=== PATIENT | female | born 1970 | race Caucasian/White ===

== ENCOUNTER 2016-08-15 20:04 | Emergency (ER) | payer MEDICARE, MEDICAID ==
[~2016-08-15] VITALS: Ht 157.5 cm; Wt 70.5 kg
[~2016-08-15 20:04] MED LIST: CHOL500050 PO; ELET40TA9 PO; GLYC2TAB13 PO; LAMO25TA PO; LEVO100T6 PO; MIDO2.5T PO; MULT-666 PO; PROM12.510 PO; TERA5CAP6 PO; TRAM50TA2 PO; VERA100C5 PO; [UNRECOGNIZED DRUG - CODE] PO; cyanocobalamin IJ
[2016-08-15 20:28] VITALS: BP 104/64; PULSE 63; RESP 14; O2SAT 99
[2016-08-15 21:42] LABS: BASOPHILS % (AUTO) 0.8 % (0-3); EOSINOPHILS % (AUTO) 2.8 % (0-5); Mean Corpuscular Hemoglobin 28.9 pg (27.0-35.0); Mean Corpuscular Volume 86.1 fL (81-100); NEUTROPHILS % (AUTO) 53.2 % (40-74); Platelet Count 170 bil/L (150-400)
[2016-08-15 22:03] LABS: Magnesium 1.9 mg/dL (1.6-2.6)
--- NOTE | 2016-08-15 23:50 | ED.REPORT ---
HPI-Abd Pain F 40 and Over Date of Service Aug 15, 2016 ED Provider: Jersey Fabian MD Pt is a 45 y.o. female with a hx of bowel obstruction, cholecystectomy, appendectomy, and gastric bypass who presents to the ED c/o RLQ pain onset 1 month ago and worsening over the past several days currently rated at a 9. Pt reports associated nausea and diarrhea. She denies vomiting, dysuria, and fever. Nursing Notes Stated Complaint: ABDOMINAL PAIN Chief Complaint: Female Abdominal Pain Nursing Notes Reviewed: Yes Allergies: Coded Allergies: clindamycin (Verified Allergy, Severe, rash, 04/29/15) fluoxetine HCl (Verified Allergy, Severe, rash, 04/29/15) zolpidem (Verified Allergy, Intermediate, 01/06/16) NSAIDS (Non-Steroidal Anti-Inflamma (Unverified Allergy, Unknown, unknown , 04/29/15) fluocortin butyl (Verified Allergy, Unknown, unknown, 04/29/15) zolpidem tartrate (Verified Adverse Reaction, Severe, hallucinations, ) Scheduled ([cyanocobalamin]) 1,000 MCG IJ every month Bethanechol Chloride (Urecholine) 25 Mg Tab 25 MG PO DAILY Cholecalciferol (Vitamin D3) (Vitamin D3) 50,000 Unit Capsule 50,000 UNIT PO QW Glycopyrrolate (Glycopyrrolate) 2 Mg Tablet 2 MG PO AM Glycopyrrolate (Glycopyrrolate) 2 Mg Tablet 3 MG PO HS Lamotrigine (Lamotrigine) 25 Mg Tablet 75 MG PO AM Levothyroxine (Levothyroxine) 100 Mcg Tablet 75 MCG PO AM Midodrine (Midodrine) 2.5 Mg Tablet 5 MG PO AM Multivitamin (Once Daily) 1 Each Tablet 1 EACH PO DAILY Terazosin (Terazosin) 5 Mg Capsule 5 MG PO HS Verapamil ER (Verelan PM) 100 Mg Capsule 100 MG PO BID Scheduled PRN Eletriptan HBr (Relpax) 40 Mg Tablet 40 MG PO DAILY PRN PRN Headache Promethazine (Promethazine) 12.5 Mg Tablet 12.5 MG PO Q4-6H PRN PRN . Tramadol (Tramadol) 50 Mg Tablet 50 MG PO Q6H PRN PRN For Pain General Time Seen by MD: 23:41 Chief Complaint Abdominal pain Hx Obtained From: Patient Arrived By: Walk-in Sudden in Onset?: No Onset Occurred: More than a week ago... Symptom Duration: Since onset Progression since Onset: Gradually worsening Location: : RLQ Quality: Painful Severity: Current: Pain level 9 out of 10 Recent Healthcare: No recent doctor visit, No recent hospitalization Past Medical History Past Medical History Pt reports "kidney problems" Past Surgical History Bowel obstruction Reports: Appendectomy, Cholecystectomy, Inguinal hernia repair Reports: Gastric bypass Smoking History Never Smoker Social History Other Social History: Good social support, Local resident Ambulatory Status Independent Review of Systems Constitutional: Denies: Fever GI: Reports: Abdominal pain, Diarrhea, Nausea, Denies: Constipation, Vomiting Female: Denies: Dysuria Complete sys rev & neg: except as marked. Physical Exam Vital Signs Vital Signs (First) Date Time Temp Pulse Resp B/P Pulse Ox O2 Delivery O2 Flow Rate FiO2 08/15/16 20:28 36.5 63 14 104/64 99 Room Air Initial VS: Reviewed, Vital signs normal Head / Eyes: Atraumatic, Normocephalic, PERRL Extremities: Vascular intact, Neuro intact Skin: Warm, Dry, No cyanosis Neurologic: Alert, Oriented, Nonfocal Psychiatric: Mood/affect normal, Behavior normal, Normal thought content General/Constitutional: Awake, Alert, Well appearing, Well developed, Well hydrated, Well nourished, Not toxic appearing Appearance / Presentation: Positive: Uncomfortable Respiratory / Chest: Atraumatic, Breath sounds NL, Breath sounds = bilat, No respiratory distress Cardiovascular: Heart rate NL, Regular rhythm, Heart sounds NL, Peripheral circulation NL Abdomen: Atraumatic, Soft, BS normoactive, No distention Tenderness/Guarding/Rebound: Positive: Tender RUQ... (diffuse) Back: Atraumatic, No CVA tenderness Interpretation & Diagnostics Lab Results Interpretation Result Diagram: 08/15/16213108/15/162131 Test 08/15/16 21:32 08/15/16 23:50 White Blood Count 5.3th/mm3 (3.8-10.1) Red Blood Count 4.18mil/mm3 (3.90-5.20) Hemoglobin 12.1g/dL (12.0-15.6) Hematocrit 36.0% (35.0-46.0) Mean Corpuscular Volume 86.1fL (81-100) Mean Corpuscular Hemoglobin 28.9pg (27.0-35.0) Mean Corpuscular Hemoglobin Concent 33.6% (32.0-37.0) Red Cell Distribution Width 12.6% (12.3-15.4) Platelet Count 170bil/L (150-400) Neutrophils (%) (Auto) 53.2% (40-74) Lymphocytes (%) (Auto) 37.0% (14-46) Monocytes (%) (Auto) 6.0% (4-12) Eosinophils (%) (Auto) 2.8% (0-5) Basophils (%) (Auto) 0.8% (0-3) Sodium Level 140mEq/L (134-144) Potassium Level 4.3mEq/L (3.5-5.2) Chloride Level 102mEq/L (97-108) Carbon Dioxide Level 25mmol/L (18-29) Blood Urea Nitrogen 11mg/dL (6-24) Creatinine 0.76mg/dL (0.57-1.00) Estimat Glomerular Filtration Rate 119mL/min (>59) Glucose Level 94mg/dL (60-99) Calcium Level 9.6mg/dL (8.5-10.1) Magnesium Level 1.9mg/dL (1.6-2.6) Total Bilirubin 0.5mg/dL (0.0-1.2) Aspartate Amino Transf (AST/SGOT) 11U/L (0-50) Alanine Aminotransferase (ALT/SGPT) 10U/L (0-32) Alkaline Phosphatase 56U/L (25-150) Total Protein 6.5g/dL (6.4-8.4) Albumin 4.3g/dL (3.4-5.0) Lipase 22U/L (13-60) Hold Bueno Top Tube Received (Received) Urine Color Yellow (YELLOW) Urine Appearance Clear (CLEAR,HAZY) Urine pH 5.5 (5.0-8.0) Urine Specific [place] 1.020 (1.003-1.035) Urine Protein Negativemg/dL (NEG,TRACE) Urine Glucose (UA) Negativemg/dL (NEGATIVE) Urine Ketones Negativemg/dL (NEGATIVE) Urine Occult Blood Negative (NEGATIVE) Urine Nitrite Negative (NEGATIVE) Urine Bilirubin Negative (NEGATIVE) Urine Urobilinogen Normalmg/dL (NORMAL) Urine Leukocyte Esterase Negative (NEGATIVE) Urine RBC 0-2/hpf (0-2) Urine WBC 0-5/hpf (0-5) Urine Epithelial Cells Few/hpf (NONE-MOD) Urine Crystals None seen (NONE SEEN) Urine Bacteria Few/hpf (NONE-FEW) Urine Hyaline Casts None/lpf (NONE) Urine Granular Casts None seen (NONE SEEN) Urine Waxy Casts None seen (NONE SEEN) Urine Red Blood Cell Casts None seen (NONE SEEN) Urine White Blood Cell Casts None seen (NONE SEEN) Urine Mucus None seen (None Seen) Urine Trichomonas None seen (NONE SEEN) Urine Yeast None (NONE SEEN) Urinalysis Comment Urine Culture Reflexed Not indicated Lab values outside NL range: no clinical significance. CT Abd / Pelvis Interpretation CONCLUSION: No acute findings. Pancreatic cystic structure versus dilated pancreatic duct. Radiologist: Meg Godwin MD Re-Eval/Medical Decision Med Decision/Clinical Course 45-year-old with abdominal wall pain. She has a reducible bulge when standing. Her abdominal exam is remarkable for multiple scars but minimal tenderness. There is no bulging while lying down. CT scan does not show significant abnormalities when lying down. When she stands up there is a an area of bulging consistent with very poor muscles tone in the right abdomen, confirmed on CT scan by virtual absence of the rectus abdominis muscle. There is no evidence of emergent process at this time. She will follow up with the surgeon routinely. Source of Hx: Old records Re-Evaluation/Progress #1: Time of Eval: 01:00 Patient Status: No relief Re-Evaluation/Progress Note: Pt rechecked. Pt has continued pain and nausea. Awaiting CT results. Re-Evaluation/Progress #2: Time of Eval: 01:48 Re-Evaluation/Progress Note: Pt rechecked. Small abdominal hernia palpated. Pt is still complaining of intermittent abdominal pain. Discussed imaging results and plan for discharge. Counseled Regarding: Diagnosis, Lab results, Need for follow-up, When/why to return to ED Discharge & Departure Primary Impression: Abdominal pain Abdominal location: upper abdomen, unspecified Qualified Code: R10.10 - Upper abdominal pain, unspecified Additional Impression: Abdominal hernia Hernia type: incisional Obstruction and gangrene presence: without obstruction or gangrene Qualified Code: K43.2 - Incisional hernia without obstruction or gangrene Disposition: Home Discharge Condition All VS Reviewed: Yes Condition: Improved Patient Instructions: Acute Abdominal Pain (ED) Additional Instructions: Labs and CT scan are all normal. There is a weakness of the abdominal wall, but no entrapment of bowel. Contact surgery for further evaluation and possible repair. Referrals: Nas Jonas MD (PCP) Kaley Attestation Portions of this note were transcribed by Fausto Ayers. I, Dr. Fabian personally performed the history, physical exam and medical decision-making; I reviewed and confirmed the accuracy of the information in the transcribed note. Signed by: Kaley Corona, 08/16/16 and 0157. copies to: Nas Jonas MD, Howard L MD Aug 15, 2016 23:50 FAUSTO AYERS Aug 15, 2016 23:55
[2016-08-16] MEDS ORDERED: 0.9% Sodium Chloride 1,000 ML IV ONE
[2016-08-16] MEDS ORDERED: Pantoprazole 4 mg/mL 10 mL Inj IVPUSH ONE
[2016-08-16] MEDS: HYDROmorphone 0.5 mg/0.5 mL iSecure Syringe IVPUSH PRN ×3 (00:13→02:08)
[2016-08-16] MEDS: Ondansetron 2 mg/mL 2 mL Inj IVPUSH PRN ×2 (00:13→01:08)
[2016-08-16 00:16] LABS: APPEARANCE,URINE CLEAR (CLEAR,HAZY); COLOR,URINE YELLOW (YELLOW); OCCULT BLOOD,URINE NEGATIVE (NEGATIVE); PH,URINE 5.5 (5.0-8.0); UROBILINOGEN,URINE NORMAL (NORMAL)
[2016-08-16 02:31] VITALS: BP 111/69; PULSE 60; RESP 14; O2SAT 100
--- NOTE | 2016-08-16 11:26 | DRSVH ---
PROCEDURE: CT ABDOMEN AND PELVIS WITH CONTRAST ([id number]) INDICATIONS: abd pain, S/P appy, clarissa, gastric bypass, SBO TECHNIQUE: After the administration of intravenous contrast, 5 mm thick sections acquired from the diaphragm to the symphysis. 5 mm coronal and sagittal reformats were acquired. For radiation dose reduction, the following was used: automated exposure control, adjustment of mA and/or kV according to patient siz e. COMPARISON: [facility], CT, CT ABD PELVIS W CON, 01/06/2016, 17:46. FINDINGS: Image quality: Excellent. ABDOMEN: Lung bases: Lung bases are clear. Heart size is normal. Solid organs: Liver and spleen are normal in size and enhancement. Gallbladder has been removed. Co mmon bile duct measures 9 mm, unchanged compared to prior exam. Pancreas enhances normally. No adren al nodules. Kidneys demonstrate normal size and enhancement, without hydronephrosis. Peritoneum and bowel: Bowel loops demonstrate normal wall thickness and caliber. No free fluid or a ir. Gastric bypass changes are present. Nodes and vessels: No retroperitoneal or mesenteric adenopathy by size criteria. Aorta and inferior vena cava are normal in size. Miscellaneous: No ventral hernias. PELVIS: Genitourinary: Bladder wall thickness is normal. Miscellaneous: No inguinal hernias or adenopathy. Bones: No suspicious bony lesions. No vertebral body compression fractures. IMPRESSION: 1. No visualized acute abdominal or pelvic process. Mildly prominent common bile duct suspected to be related to post cholecystectomy sequela. Recommend correlation to enzyme levels as clinically approp riate. Dictated by: Mira Collazo M.D. on 08/16/2016 at 11:15 Approved by: Mira Collazo M.D. on 08/16/2016 at 11:24
[2016-09-20] MEDS ORDERED: DIHY1SPR3 NS (12:20)
== END 2016-08-16 02:32 | disposition home or self-care (01) ==
LOC: SED 20:04
DX: K43.2 Incisional hernia without obstruction or gangrene (principal); Z90.49 Acquired absence of other specified parts of digestive tract; Z87.19 Personal history of other diseases of the digestive system; Z90.89 Acquired absence of other organs; Z98.84 Bariatric surgery status; Z88.6 Allergy status to analgesic agent; Z88.8 Allergy status to other drugs, medicaments and biological substances; Z88.1 Allergy status to other antibiotic agents
CPT/HCPCS: 36415; 74177; 80053; 81000; 83690; 83735; 85025; 96361; 96374; 96375; 96376; 99285; J1170; J2405; J7030; Q9967

== ENCOUNTER 2016-09-21 11:46 | Day surgery (SDC) | payer MEDICARE, MEDICAID ==
[~2016-09-21] VITALS: Ht 154.9 cm; Wt 70.0 kg
[~2016-09-21 11:46] MED LIST changes: +DIHY1SPR3 NS; -LAMO25TA PO; -MULT-666 PO; -TRAM50TA2 PO; -[UNRECOGNIZED DRUG - CODE] PO
[2016-09-21] MEDS ORDERED: Propofol 10,000 mCg/mL 20 mL Inj ONE (11:47)
[2016-09-21] MEDS ORDERED: fentaNYL-PF 50 mCg/mL 2 mL Inj ONE (11:47)
[2016-09-21 13:23] VITALS: BP 118/84; PULSE 51; RESP 16; O2SAT 100
[2016-09-21] MEDS ORDERED: Lactated Ringer's 1,000 ML IV ONE (14:36)
--- NOTE | 2016-09-21 14:49 | PCM.ENDEGD ---
EGD Date of Service: Sep 21, 2016 Physician Jeison Olmos MD Pre Procedure Diagnosis: Abdominal pain Post Procedure Dx & Findings: Normal upper GI Procedure Esophagogastroduodenoscopy PROCEDURE IN DETAIL: After proper sedation, Olympus video endoscope was inserted into patient's mouth and esophagus was successfully intubated. Scope introduced esophagus. Esophagus showed normal shiny whitish mucosa consistent with squamous cell component. Z line was intact at 35 cm from the incisors. The further advanced into stomach. Residual stomach was noted. Stomach showed normal shiny mucosa with normal appearing rugae folds without any ulcer mass erosion. Unable to retroflex because of the size. Stomach was easily inflated and deflatable using air. Scope further events to efferent and afferent loops. 5 random biopsies obtained from the efferent loop. Impression Normal upper GI Presedation Assessment Risks and Benefits Informed consent was obtained from the patient after all risks and benefits including but not limited to drug reaction, infection, pain, bleeding, perforation, as well as alternatives were discussed. Patient monitoring Continuous pulse oximetry, cardiac monitoring, blood pressure monitoring, IV access, and oxygen at 2L per nasal cannula. Complications There were no periprocedural complications identified. Post Procedure Plan Post Procedure Recommendations 1. Restrict activities today. 2. Resume normal activities in the morning. 3. Resume medications. 4. GERD behavioral modification: - Avoid fatty, acidic, spicy, large meals - Do not lie down after meals - Do not eat or drink anything for at least 2 1/2 hours before going to bed at night - Discontinue tobacco and alcohol - Decrease or avoid caffeine - Avoid chocolate and mints - Decrease weight - Avoid aspirin and non steroidal anti-inflammatory agents (NSAID) such as Aleve, Advil, Mobic, Naproxen, Ibuprofen, etc 5. Add proton pump inhibitor. Take 30 minutes before 1st meal of the day. 6. Patient informed of normal post procedure side effects as bloating, drowsiness, blood streaking in the stool 7. If gastric biopsy reveal H.pylori, continue with appropriate treatment 8. If small bowel biopsy reveals celiac, continue with appropriate treatment 9. Please don't hesitate to call me with any questions Jeison Olmos MD Sep 21, 2016 14:49
--- NOTE | 2016-09-21 14:52 | PCM.ANEP1 ---
Post Anesthesia PACU Phase 1 Assessment Vital Signs 106/66, 63, 100%, 16 Vital Signs Date Time Temp Pulse Resp B/P Pulse Ox O2 Delivery O2 Flow Rate FiO2 09/21/16 13:23 51 16 118/84 100 Room Air Anesthetic Administered: GA Level of Alertness: Awake, talking WHITMAN's with Equal Strength: Yes Pain: No Nausea or Vomiting: No CV Function & Hydration Stable: Yes Airway Device: none Oxygen Delivery: Room Air Lungs: Clear to Auscultation Dermatome Level: Full Sensation Summary uneventful sedation PACU Phase 2 Assessment Complications: No Follow up Care: No Patient Instructions Provided: N/A John Duarte MD Sep 21, 2016 14:52
--- NOTE | 2016-09-21 14:53 | PCM.HPANE ---
Patient Data Date of Service: Sep 21, 2016 ([id number]) Surgeon Admitting Provider: Attending Provider:Jeison Olmos MD Primary Care Physician:Nas Jonas MD Other Provider:Montse Jasso Anesthesia Reason for Visit Abdominal Pain In Female Ht/WT & BMI Height (Feet): 5 Height (Inches): 1 Weight (Kilograms): 70 Body Mass Index 29.00 Allergies Coded Allergies: clindamycin (Verified Allergy, Severe, rash, 09/20/16) fluoxetine HCl (Verified Allergy, Severe, rash, 09/20/16) zolpidem (Verified Allergy, Intermediate, 09/20/16) NSAIDS (Non-Steroidal Anti-Inflamma (Unverified Allergy, Unknown, unknown , 09/20/16) fluocortin butyl (Verified Allergy, Unknown, unknown, 09/20/16) zolpidem tartrate (Verified Adverse Reaction, Severe, hallucinations, ) Past Anesthesia History Anesthesia History: Denies:: Abnormal Airway, Anesthesia Reactions, Difficult Intubation, Fam Anesthesia Reaction, Fam Malignant Hypertherm, Malignant Hyperthermia Diabetes History Hx Diabetes?: No MRSA MRSA: Yes (ABD SURGERY INCISION) Medications Reported Medications Dihydroergotamine Mesylate 1 Ml [place].pump1 Ml NS DAILY 09/20/16 Eletriptan HBr (Relpax)40 Mg [id number] Mg PO DAILY PRN Headache 11/22/14 Verapamil ER (Verelan PM)100 Mg [id number] Mg PO BID 11/22/14 Cholecalciferol (Vitamin D3) (Vitamin D3)50,000 Unit Uumecov53,000 Unit PO QW 08/10/14 Glycopyrrolate 2 Mg Tablet3 Mg PO HS 08/10/14 Glycopyrrolate 2 Mg Tablet2 Mg PO AM 08/10/14 Promethazine 12.5 Mg Gctdbc82.5 Mg PO Q4-6H PRN . 08/10/14 Levothyroxine 100 Mcg Wyzyvk36 Mcg PO AM For Thyroid Replacement #30 TABLET Ref 0 08/10/14 Midodrine 2.5 Mg Tablet5 Mg PO AM 08/10/14 [cyanocobalamin] No Conflict Check1,000 Mcg IJ every month 12/06/11 Discontinued Reported Medications Terazosin 5 Mg Capsule5 Mg PO HS 30 Days Ref 0 08/10/14 Multivitamin (Once Daily)1 Each Tablet1 Each PO DAILY 11/22/14 Bethanechol Chloride (Urecholine)25 Mg Tab25 Mg PO DAILY 30 Days Ref 0 08/10/14 Tramadol 50 Mg Mykllb94 Mg PO Q6H PRN For Pain Ref 0 08/10/14 Lamotrigine 25 Mg Oixrkt02 Mg PO AM #30 TABLET Ref 0 08/10/14 History History of ENT Problems?: No HEENT History: Positive for:: Dysphagia Denies:: Abnormal Airway Cataracts Difficult Intubation Hearing Problem Sinus Problem Denture Type: Full- Upper Full- Lower Teeth Condition: Within Normal Limits Hx of Heart Problems?: Yes Cardiovascular History: Positive for:: Hypertension Irregular Heartbeat (tachycardia/palpitations) Denies:: AICD Atrial Fibrillation Cardiac Surgery Chest Pain Congestive Heart Failure Edema Heart Murmur Pacemaker Thrombophlebitis Valvular Heart Disease Other Cardiac History: TACHYCARDIA Hx of Respiratory Problem?: No Respiratory History: Positive for:: Pneumonia Denies:: Asthma COPD Chest Surgery Dyspnea Emphysema Hemoptysis Tuberculosis Hx Neurologic Problems?: Yes Neurological History: Positive for:: Headaches (migraines) Denies:: CVA Dementia Parkinson's Disease Seizures Hx of GI Problems?: Yes Hx of Problems?: Yes Genitourinary History: Positive for:: Kidney Stones (2009) Urinary Tract Infection Female Hx: Denies:: Currently Endometriosis Pelvic Inflammatory Problems with Breasts? Hx Musculoskeletal Problems?: Yes Musculoskeletal History: Positive for:: Back Injury (ch.back pain, neck injury ) Fibromyalgia Denies:: Joint Replacement Musculoskeletal Trauma Hx of Psycho/Social Problems?: Yes Psycho Social History: Positive for:: Anxiety Denies:: Bipolar Disorder Hx Depression Hx Surgeries?: Yes (PETERSON-EN-Y,BREAST REDUCTION,GALLBLADDER) Hx Any Other Health Problems?: Yes Other History: Positive for:: Thyroid Disease (hypothyroidism) Denies:: Cancer Endocrine Disease History Blood Transfusions: Denies:: Blood Transfuse Reaction Blood Transfusions Hx Diabetes: No Hx Alcohol Use: NoHx Substance Use: Yes (MEDICAL MARIJUANA) Smoking Status: Never Smoker Have You Smoked inLast 12 mo: No Stop/Bang Treated for Sleep Apnea?: No Do You Have a CPAP Machine?: No S-Snoring: Do You Snore Loudly: Yes T-Tired: feel tired, fatigued: Yes O-Obsered: Observed not breath: No P-Blood Pressure: treated: No B- Body Mass Index > 35 kg/m2: No A- Age over 50: No N- Neck Large Circumference: No G- Gender Male: No JUAN PABLO Total Score: 2 JUAN PABLO Risk Assessment: Low Risk, <3 Yes Risk Assessment Category Category 1A: Patient has history of documented sleep apnea, and HAS NOT received any narcotic, sedative or anesthesia administration during this stay. Category 1B: Patient has history of documented sleep apnea, and HAS received any narcotic , sedative or anesthesia administration during this stay Category 2: Patient has SUSPECTED Obstructive Sleep Apnea, and HAS received any narcotic , sedative or anesthesia administration during this stay. Category 3: Patient has SUSPECTED Obstructive Sleep Apnea and HAS NOT received narcotic, sedative or anesthesia administration during this stay. Category 4: Outpatient in Procedural Areas with known sleep apnea or who screen positive for High Risk via the STOP/BANG questionnaire. Exam Exam Vital Signs Vital Signs Date Time Temp Pulse Resp B/P Pulse Ox O2 Delivery O2 Flow Rate FiO2 09/21/16 13:23 51 16 118/84 100 Room Air General Appearance: Alert, Oriented X3 HEENT/AIRWAY: MP 1 Lungs: Clear to Auscultation Heart: Exam Unremarkable Meds/Labs/Diagnostics Admission Meds Current Medications Lactated Ringer's (Lr) 1,000 ml @ ud STK-MED ONCE IV Last administered on t 14:36; Start 09/21/16 at 14:36; Stop 09/21/16 at 14:40; Status DC Plan Impression Patient chart reviewed, patient interviewed and anesthestic plan with risks, benefits, and alternatives discussed, and informed consent obtained. NPO per Anesth. Guidelines: Yes ASA Physical Status: ASA2 Mod Systemic Disease Anesthetic Plan: GA Bene/Risks/Altern/Consents: Yes HP Complete Prior to Induction: Yes John Duarte MD Sep 21, 2016 14:53
[2016-09-21 14:54] VITALS: BP 106/66; PULSE 67; RESP 16; O2SAT 100
[2016-09-21 15:10] VITALS: BP 108/61; PULSE 53; RESP 16; O2SAT 100
--- NOTE | 2016-09-25 14:12 | PATH ---
SURGICAL PATHOLOGY Attending Physician:Jeison Olmos M.D. CASE STATUS: Signed Out PATIENT NAME: TYSHAWN LI PID: [id number] : 1970 DATE COLLECTED:09/21/2016 00:00 SPECIMEN: Small Intestine/Bowel, Biopsy CLINICAL HISTORY: 1). SMALL BOWEL BIOPSIES FINAL DIAGNOSIS: Small Bowel Biopsies: Portions of small intestinal mucosa with no diagnostic abnormality. Negative for active inflammation, granulomas, dysplasia or malignancy. ICD10: R10.13 GROSS DESCRIPTION: The specimen is received in one formalin filled container labeled with the patient's name, sublabeled "small bowel" and consists of 3 tiny portions of tissue which aggregate to 0.2 x 0.2 x 0.2 CM. The specimen is entirely submitted in one cassette. 09/22/2016 [facility] ICD-9 CODES: CPT CODES: 1: 08971 Electronically Signed Out Jenna Pearce MD [facility] Pathology [facility], [place] [address] Technical component performed at [facility], [address] [place] [address] Ave[address], [place], [address]
== END 2016-09-21 23:59 | disposition home or self-care (01) ==
LOC: END 11:46
PROVIDERS: ATTEND Internal Medicine
DX: R10.9 Unspecified abdominal pain (principal); Z98.84 Bariatric surgery status; G47.30 Sleep apnea, unspecified; M79.7 Fibromyalgia; G90.9 Disorder of the autonomic nervous system, unspecified; E03.9 Hypothyroidism, unspecified; I10 Essential (primary) hypertension; F12.90 Cannabis use, unspecified, uncomplicated
CPT/HCPCS: 43239; 88305; J2250; J3010; J7120